=== PATIENT | male | born 1990 | race Caucasian/White ===

== ENCOUNTER 2022-05-03 11:30 | Inpatient (IN) | payer BC ==
[~2022-05-03] VITALS: Ht 193 cm; Wt 98.9 kg
--- NOTE | 2022-05-03 11:58 | NUR ---
PATIENT BROUGHT INTO ROOM COMPLAINING OF ABDOMINAL PAIN. NO DIARRHEA OR N/V. LOWER ABDOMINAL PAIN NOT LOCALIZED TO ONE SIDE.
--- NOTE | 2022-05-03 12:01 | NUR ---
PATIENT WAITING TO BE SEEN.
--- NOTE | 2022-05-03 12:12 | NUR ---
DR. MAYES IN ROOM FOR EVALUATION WITH PATIENT
[2022-05-03 12:38] LABS: HEMATOCRIT 44.1 % (36.7-47.1); MEAN CORPUSCULAR HEMOGLOBIN 30.1 uug (23.8-33.4); MEAN CORPUSCULAR VOLUME 87.6 fL (73.0-96.2); PLATELET COUNT (AUTO) 185 K/uL (152-348)
[2022-05-03 12:39] LABS: *BILIRUBIN,URIN NEGATIVE (NEGATIVE); *BLOOD, URINE NEGATIVE (NEGATIVE); *CLARITY,URINE CLEAR (CLEAR); *COLOR,URINE YELLOW (YELLOW); *KETONES,URINE NEGATIVE (NEGATIVE); *UROBILINOGEN,URINE 0.2 E.U./dl (NORMAL); LEUKOCYTE ESTERASE ,URINE NEGATIVE (NEGATIVE); NITRITE, URINE NEGATIVE (NEGATIVE); UGLUCOSE NEGATIVE (NEGATIVE)
[2022-05-03 12:51] LABS: CREATININE 1.2 mg/dL (0.6-1.3); POTASSIUM 4.2 mmol/L (3.5-5.1)
[2022-05-03 12:56] LABS: BILIRUBIN,DIRECT 0.2 mg/dL (0.0-0.2); BILIRUBIN,TOTAL 0.9 mg/dL (0.2-1.0); TOTAL PROTEIN, SERUM 7.7 g/dL (6.4-8.2)
--- NOTE | 2022-05-03 14:10 | NUR ---
informed [facility] floor for available bed. no bed availability at this time. floor to call back.
[2022-05-03] MEDS ORDERED: PIPERACILLIN/TAZOBACTAM/D5W 50 ML IV ONE (14:12)
[2022-05-03] MEDS ORDERED: PIPERACILLIN SODIUM/TAZOBACTAM 3.375 G in IV DEXTROSE 5% 50 ML IV SCH ×2 (14:15→19:00)
[2022-05-03] MEDS ORDERED: IV D5 1/2 NS 1000 ML 1,000 ML IV ONE (14:15)
--- NOTE | 2022-05-03 14:58 | NUR ---
npo at 2330. and case is at 0730 per anesthesiologist.
[2022-05-03 18:30] VITALS: BP 133/77
[2022-05-03] MEDS ORDERED: MORPHINE SULFATE 2 MG/1 ML DISP.SYRIN IV PRN (19:00)
[2022-05-03] MEDS ORDERED: ACETAMINOPHEN 325 MG TABLET PO PRN (19:00)
[2022-05-03] MEDS ORDERED: ONDANSETRON 4 MG/2 ML VIAL IV PRN (19:00)
[2022-05-03 20:00] VITALS: BP 129/85
--- NOTE | 2022-05-03 21:01 | NUR ---
Patient in bed AALOx4.Denies abd'l pain at this time. On Ra.No s/s of distress noted.Iv on Left hand patent and intact. Adm.Iv ATb as ordered ,no a/r noted. Ambulates to bathroom.NPO after 2330.Call light with in reach. Will continue to monitor.
[2022-05-03] MEDS: PIPERACILLIN SODIUM/TAZOBACTAM 3.375 G in IV DEXTROSE 5% 100 ML IV SCH (21:07)
[2022-05-04 04:00] VITALS: BP 139/70
[2022-05-04] MEDS: PIPERACILLIN SODIUM/TAZOBACTAM 3.375 G in IV DEXTROSE 5% 100 ML IV SCH ×3 (05:38→21:03)
[2022-05-04 06:07] LABS: HEMATOCRIT 44.1 % (36.7-47.1); MEAN CORPUSCULAR HEMOGLOBIN 29.9 uug (23.8-33.4); MEAN CORPUSCULAR VOLUME 87.1 fL (73.0-96.2); PLATELET COUNT (AUTO) 178 K/uL (152-348)
[2022-05-04] MEDS ORDERED: BUPIVACAINE/EPI PF 0.5% 10 ML VIAL ONE (06:21)
[2022-05-04 06:37] LABS: CREATININE 1.4 mg/dL (0.6-1.3); MAGNESIUM 2.3 mg/dL (1.8-2.4); PHOSPHOROUS 3.3 mg/dL (2.5-4.9); POTASSIUM 4.1 mmol/L (3.5-5.1)
--- NOTE | 2022-05-04 06:45 | NUR ---
Patient picked up by OR nurses for lap appendectomy.Iv remain intact and patent.VSS .Will endorsed to oncoming shift.
[2022-05-04] MEDS ORDERED: FENTANYL CITRATE 100 MCG/2 ML AMPUL ONE ×2 (07:12→08:25)
[2022-05-04] MEDS ORDERED: ROCURONIUM BROMIDE 50 MG/5 ML VIAL ONE (07:12)
[2022-05-04] MEDS ORDERED: DEXAMETHASONE SOD PHOSPHATE 4 MG INJ ONE ×2 (09:20)
[2022-05-04] MEDS ORDERED: CEFAZOLIN 1 G VIAL ONE ×2 (09:20)
[2022-05-04] MEDS ORDERED: LIDOCAINE-MPF 2% 5 ML VIAL ONE (09:20)
[2022-05-04] MEDS ORDERED: SUCCINYLCHOLINE CHLORIDE 200 MG/10 ML VIAL ONE (09:20)
[2022-05-04] MEDS ORDERED: PROPOFOL 200 MG/20 ML BOTTLE ONE (09:20)
[2022-05-04] MEDS ORDERED: NEOSTIGMINE METHYLSULFATE 10 MG/10 ML VIAL ONE (09:20)
[2022-05-04] MEDS ORDERED: ONDANSETRON 4 MG/2 ML VIAL ONE (09:20)
[2022-05-04] MEDS ORDERED: GLYCOPYRROLATE 0.2 MG/ML VIAL ONE ×3 (09:20)
[2022-05-04] MEDS ORDERED: HYDROCODONE/APAP 5-325MG TABLET PO PRN (09:30)
--- NOTE | 2022-05-04 09:45 | NUR ---
Patient returned from Recovery unit post laparoscopic appendectomy. AAO x4, able to make needs known. Denies any pain at this time. 3 incisions to abd noted, sites are clean and dry, no bruising or bleeding. Patient is able to tolerate water, aspiration precautions followed. Patient to resume regular diet. Patient has not voided or walked post surgery. patient instructed to call staff to be assisted to bathroom for first void/ ambulation. Call light within reach.
[2022-05-04 09:55] VITALS: BP 124/68
[2022-05-04] MEDS: PANTOPRAZOLE SODIUM 40 MG VIAL IV SCH (10:15)
--- NOTE | 2022-05-04 11:00 | NUR ---
Patient able to eat one sandwich without complication, no c/o nausea or vomiting. Patient is drinking water but is only able to have a minimal amount of urine. Patient encouraged to ambulate, able to ambulate to bathroom with the assistance of this RN, patient feels slightly lightheaded, relieved when back in bed.
[2022-05-04 12:09] VITALS: BP 132/68
--- NOTE | 2022-05-04 14:25 | NUR ---
Patient able to tolerate lunch without complication, no nausea or vomiting. Noted with minimal pain to abd sites and right shoulder. patient able to tolerate ambulating around unit, no further episodes of being light headed. Patient girlfriend at bedside. Patient able to urinate about 500cc, urine stream is broken but patient is able to empty bladder. Patient may be discharged after moving gas.
[2022-05-04 16:05] VITALS: BP 137/69
--- NOTE | 2022-05-04 17:30 | NUR ---
Patient unable to move gas at this time. Continues to ambulate in unit without complications. Noted with 4/10 pain to abd incision sites and headache. Tylenol given at this time. Luis A Key DNP aware
--- NOTE | 2022-05-04 19:30 | NUR ---
Patient received in bed awake, no signs of distress, denies pain. Still has not pass gas, encourage to continue to ambulate. Incentive spirometer provided with instructions.
[2022-05-04 20:20] VITALS: BP 134/86
--- NOTE | 2022-05-04 21:14 | NUR ---
Patient only passing very little gas at this time. Informed Dr. Key that patient will remain at the unit overnight and states understanding. Continue to encourage patient to ambulate and use incentive spirometer.
[2022-05-05 04:02] VITALS: BP 124/79
[2022-05-05] MEDS: PIPERACILLIN SODIUM/TAZOBACTAM 3.375 G in IV DEXTROSE 5% 100 ML IV SCH (05:08)
--- NOTE | 2022-05-05 05:31 | NUR ---
Slept well, denies any pain or discomfort. No noted resp distress. No noted adverse reaction from IV antibiotic. With active BS, able to pass gas several times, stated "I'm ok".
[2022-05-05 07:59] LABS: HEMATOCRIT 41.4 % (36.7-47.1); MEAN CORPUSCULAR HEMOGLOBIN 30.1 uug (23.8-33.4); PLATELET COUNT (AUTO) 204 K/uL (152-348)
--- NOTE | 2022-05-05 08:00 | NUR ---
ANXIOUS TO BE DISCHARGED. INSTRUCTED ANTIBIOTIC STILL INFUSING. PREPARED FOR DISCHARGE.
[2022-05-05 08:05] LABS: CREATININE 1.3 mg/dL (0.6-1.3); POTASSIUM 4.1 mmol/L (3.5-5.1)
[2022-05-05] MEDS: PANTOPRAZOLE SODIUM 40 MG VIAL IV SCH (08:35)
--- NOTE | 2022-05-05 09:05 | NUR ---
IV DC'D. ANGIOCATH REMOVED INTACT. GETTING DRESSED.
[2022-05-05] MEDS ORDERED: AMOX-427 PO (09:06)
[2022-05-05] MEDS ORDERED: IBUP-1955 PO (09:06)
--- NOTE | 2022-05-05 09:15 | NUR ---
DISCHARGED AMBULATORY, ACCOMPANIED BY BRADY STEVENSON CNA TO FRIEND IN AUTO. NO C/O DISCOMFORT.
== END 2022-05-05 09:15 | disposition home or self-care (01) | DRG 342 ==
LOC: ER 11:30 → MEDSURG3 18:08
PROVIDERS: ADMIT Nurse Practitioner Acute Care; ATTEND Nurse Practitioner Acute Care
PROC: 0DTJ4ZZ Resection of Appendix, Percutaneous Endoscopic Approach (ICD-10-PCS; principal; 2022-05-04)
DX: K35.30 Acute appendicitis with localized peritonitis, without perforation or gangrene (principal); K57.32 Diverticulitis of large intestine without perforation or abscess without bleeding; Z20.822 Contact with and (suspected) exposure to COVID-19
CPT/HCPCS: 36415; 71045; 83690; 83735; 84100; 85025; 93005; A4663; C9113; G0378; J0330; J0690; J1100; J2405; J2543; J3010; J3490

== ENCOUNTER 2022-05-18 08:18 | Emergency (ER) | payer BC ==
[~2022-05-18] VITALS: Ht 193 cm; Wt 97.5 kg
[~2022-05-18 08:18] MED LIST: AMOX-427 PO; IBUP-1955 PO
--- NOTE | 2022-05-18 08:50 | NUR ---
PATIENT WAS MSE BY DR BRUNO.
[2022-05-18 09:08] VITALS: BP 124/83
--- NOTE | 2022-05-18 09:15 | NUR ---
Patient discharged to home in stable condition. Written and verbal after care instructions given. Patient verbalizes understanding of instructions. Stressed follow up or return to ER for worsening s/s.
== END 2022-05-18 09:16 | disposition home or self-care (01) ==
LOC: ER 08:18
DX: Z48.02 Encounter for removal of sutures (principal)
CPT/HCPCS: A4663